=== PATIENT | female | born 1960 | race Caucasian/White ===

== ENCOUNTER 2020-06-22 13:26 | Emergency (ER) | payer OTHER, SELFPAY ==
[2020-06-22 13:27] VITALS: BP 182/92; PULSE 79; RESP 16; TEMP 36.3; O2SAT 99; BMI 26.6
--- NOTE | 2020-06-22 13:51 | ED.VISSUMM ---
- ER Visit Summary Date of Service: 06/22/20 Chief Complaint: Bilateral armpit abscesses History of Present Illness: The patient is a 60 F chest. She depression. She is never had abscesses before. States last several days she has noticed small abscesses in both armpits the left one began draining today. No fever or chills. No other complaints. Physical Examination: Older female no acute distress. Vital signs stable afebrile. HEENT exam unremarkable. Neck nontender. Lungs clear to auscultation. Heart regular rhythm no murmur. Abdomen soft nontender. Patient is moving all 4 extremities. Neurovascular intact. The right axilla she has 2 very small less than a centimeter abscesses they are not fluctuant. There is no cellulitis. There is no significant tenderness. Left axilla she has 1 very small lymph node that is hard and nonfluctuant. There is a second 1 that is draining abner pus. There is no large abscess. Neurologic exam she is awake and alert with no focal motor deficits. Test Results: None Emergency Department Course and Treatment: These abscesses did not need to be incised and drained. They are very small. Not fluctuant. The left is already draining. Should be started on Bactrim and Keflex first dose given in the ER. Treatment Plan: Bactrim twice daily for 10 days. Keflex for 10 days. Follow-up with her primary care physician if not improving. Warm compresses and hot shower. Return if worse. Disposition: Discharge Impression: Bilateral axillary abscesses This note was generated with [employer] dictation software. It may contain incorrect words, spelling, and punctuation that were not noted in review of the chart prior to signing ED Disposition - Plan for ED Patient: Referrals: Abner Felton III, MD [Primary Care Provider] -
--- NOTE | 2020-06-22 13:53 | ED.DEP ---
ED Disposition - Plan for ED Patient: Disposition: Home or Assisted Living Instructions: ED Abscess Antibiotic Treatment Only Prescriptions: Sulfamethoxazole/Trimethoprim [Bactrim Ds Tablet] 1 ea PO BID #20 tab Prescription Printed Cephalexin [Keflex] 750 mg PO BID #20 cap Prescription Printed Referrals: Anand Felton III, MD [Primary Care Provider] - 1 Week if not improving Additional Instructions: Warm compresses and hot shower to both armpits. Continue and finish both antibiotics. Follow-up with your doctor if not improving.
[2020-06-22] MEDS: Cephalexin 250 MG Capsule 500 MG PO (14:16)
[2020-06-22] MEDS: Smz/Tmp Ds Tablet 1 TABLET PO (14:16)
== END 2020-06-22 14:21 | disposition home or self-care (01) ==
LOC: ED 13:55
PROVIDERS: Emergency Provider Emergency Medicine; PCP Family Medicine
DX: L02.412 Cutaneous abscess of left axilla (principal); L02.411 Cutaneous abscess of right axilla; Z72.0 Tobacco use
CPT/HCPCS: 99283